=== PATIENT | female | born 1995 | race Caucasian/White ===

== ENCOUNTER 2018-01-16 02:06 | Emergency (ER) | payer MEDICAID ==
[~2018-01-16] VITALS: Ht 160 cm; Wt 65.8 kg
[2018-01-16] MEDS ORDERED: LYZA0.35 MG PO (02:20)
== END 2018-01-16 04:17 | disposition home or self-care (01) ==
LOC: ED 02:06
DX: K52.9 Noninfective gastroenteritis and colitis, unspecified (principal); Z79.899 Other long term (current) drug therapy
CPT/HCPCS: 80053; 84703; 85025; 96361; 96374; 96375; 99284; J2270; J2405; J7030; J7040